=== PATIENT | female | born 1960 | race African-American/Black ===

== ENCOUNTER 2016-12-04 08:15 | Emergency (ER) | payer OTHER ==
[~2016-12-04] VITALS: Ht 152.4 cm; Wt 104.5 kg
[~2016-12-04 08:15] MED LIST: FURO20 PO; POTA20PA3 PO; PROZ10 PO
[2016-12-04] MEDS ORDERED: MUSCLE RELAXER PO (08:25)
[2016-12-04] MEDS ORDERED: IBUP-2071 PO (08:25)
[2016-12-04] MEDS ORDERED: IBUPROFEN 600 MG TABLET PO ONE (09:45)
[2016-12-04 09:51] VITALS: BP 106/74
== END 2016-12-04 10:11 | disposition home or self-care (01) ==
LOC: EMS 08:15
DX: S29.012A Strain of muscle and tendon of back wall of thorax, initial encounter (principal); M25.532 Pain in left wrist; V43.52XA Car driver injured in collision with other type car in traffic accident, initial encounter; Y93.89 Activity, other specified; Y92.89 Other specified places as the place of occurrence of the external cause; Y99.8 Other external cause status
CPT/HCPCS: 99284

== ENCOUNTER 2020-08-26 05:27 | Emergency (ER) | payer OTHER ==
[~2020-08-26] VITALS: Ht 162.6 cm; Wt 90.9 kg
[~2020-08-26 05:27] MED LIST changes: -FURO20 PO; +IBUP-2071 PO; +MUSCLE RELAXER PO; -POTA20PA3 PO; -PROZ10 PO
[2020-08-26 06:59] LABS: COVID AG,FIA SOURCE NASOPHARYNGEAL
[2020-08-26] MEDS ORDERED: ALBUTEROL SULFATE 2.5 MG/0.5 ML NEB SOLUTION NEB ONE (07:15)
[2020-08-26] MEDS ORDERED: IPRATROPIUM BROMIDE 0.5 MG/2.5 ML NEB SOLUTION NEB ONE (07:15)
[2020-08-26 07:43] LABS: BASOPHILS % (AUTO) 0.1 % (0.0-2.0); EOSINOPHILS % (AUTO) 0 % (1.0-6.0); HEMATOCRIT 41.1 % (36-46); HEMOGLOBIN 13.8 g/dL (12.0-16.0); LYMPHOCYTES # (AUTO) 1.8 K/uL (1.0-4.8); LYMPHOCYTES % (AUTO) 9.4 % (22.0-44.0); MEAN CORPUSCULAR HEMOGLOBIN 32.8 pg (26.0-34.0); MEAN CORPUSCULAR HGB CONC 33.6 G/dL (31.0-37.0); MEAN CORPUSCULAR VOLUME 98 fL (80-100); MONOCYTES # (AUTO) 1.2 K/uL (0.1-1.0); MONOCYTES % (AUTO) 6.6 % (2.0-9.0); NEUTROPHILS # (AUTO) 15.9 K/uL (1.8-7.7); NEUTROPHILS % (AUTO) 83.9 % (40.0-70.0); PLATELET COUNT (AUTO) 212 K/uL (150-450); RED CELL DISTRIBUTION WIDTH 12.4 % (11.5-14.5)
[2020-08-26 07:56] LABS: INR 1.1 (0.9-1.1); PROTHROMBIN TIME 11.3 SEC (9.4-11.6)
[2020-08-26 08:02] LABS: ALANINE AMINOTRANSFERASE 34 U/L (12-78); ALBUMIN 2.3 g/dL (3.4-5.0); ALKALINE PHOSPHATASE 90 U/L (46-116); ANION GAP 9 mmol/L (8-16); ASPARTATE AMINOTRANSFERASE 22 U/L (15-37); CALCIUM, TOTAL 8.8 mg/dL (8.8-10.5); CARBON DIOXIDE 28 mmol/L (22-29); CHLORIDE 96 mmol/L (98-107); CREATININE 0.84 mg/dL (0.60-1.30); GLOMERULAR FILTR. RATE CALC > 60 mL/min (>60); GLUCOSE,RANDOM 155 mg/dL (70-110); SODIUM SERUM 133 mmol/L (136-145); TOTAL PROTEIN, SERUM 8.1 g/dL (6.4-8.2); UREA NITROGEN, BLOOD 7 mg/dL (7-18)
[2020-08-26 08:05] LABS: POTASSIUM 2.8 mmol/L (3.5-5.1)
[2020-08-26] MEDS ORDERED: POTASSIUM CHLORIDE 20 MEQ ER TABLET PO ONE (08:15)
[2020-08-26 08:16] LABS: B-TYPE NATRIURETIC PEPTIDE 53 pg/mL (0-100)
[2020-08-26 08:40] VITALS: BP 139/85
== END 2020-08-26 08:56 | disposition home or self-care (01) ==
LOC: EMS 05:29
DX: J40 Bronchitis, not specified as acute or chronic (principal); Z20.822 Contact with and (suspected) exposure to COVID-19; F32.9 Major depressive disorder, single episode, unspecified; R79.1 Abnormal coagulation profile
CPT/HCPCS: 71045; 80053; 83880; 85025; 85610; 85730; 93005; 94640; 99285; 36415-L1; 36415-TC; J7613

== ENCOUNTER 2021-07-10 17:26 | Emergency (ER) | payer OTHER ==
[~2021-07-10] VITALS: Ht 162.6 cm; Wt 90.9 kg
[2021-07-10 17:41] VITALS: BP 154/97
[2021-07-10] MEDS ORDERED: ACETAMINOPHEN 500 MG TABLET PO ONE (18:15)
[2021-07-10] MEDS ORDERED: PROPARACAINE HCL 0.5% 15 ML OPHTHALMIC SOLUTION OD ONE (18:15)
[2021-07-10] MEDS ORDERED: FLUORESCEIN SODIUM 1 MG STRIP OD ONE (18:30)
[2021-07-10] MEDS ORDERED: HYDROCODONE/ACETAMINOPHEN 5-325 MG TABLET PO ONE (19:45)
[2021-07-10] MEDS ORDERED: ERYTHROMYCIN 0.5% 3.5 GM TUBE OPHTHALMIC OINTMENT OD ONE (19:45)
== END 2021-07-10 20:00 | disposition home or self-care (01) ==
LOC: EMS 17:29
DX: S05.01XA Injury of conjunctiva and corneal abrasion without foreign body, right eye, initial encounter (principal); M19.90 Unspecified osteoarthritis, unspecified site; F32.A Depression, unspecified; X58.XXXA Exposure to other specified factors, initial encounter; Y93.89 Activity, other specified; Y92.89 Other specified places as the place of occurrence of the external cause; Y99.8 Other external cause status
CPT/HCPCS: 99283

== ENCOUNTER 2022-07-05 19:24 | Emergency (ER) | payer OTHER ==
[~2022-07-05] VITALS: Ht 162.6 cm; Wt 97.7 kg
[2022-07-05 19:26] VITALS: BP 142/98
== END 2022-07-06 02:24 | disposition left against medical advice (07) ==
LOC: EMS 19:27
DX: Z53.21 Procedure and treatment not carried out due to patient leaving prior to being seen by health care provider (principal)
CPT/HCPCS: 99281; Z7502